=== PATIENT | female | born 1955 | race Caucasian/White ===

== ENCOUNTER 2020-04-25 12:49 | Emergency (ER) | payer MEDICARE, MEDICAID ==
[~2020-04-25] VITALS: Ht 160 cm; Wt 68.0 kg
[~2020-04-25 12:49] MED LIST: PRED5DRO OP; TRAV2.5D OP; TRU10; [UNRECOGNIZED DRUG - CODE] OP
[2020-04-25 13:10] VITALS: BP 144/98
[2020-04-25] MEDS ORDERED: ACETAMINOPHEN 325MG TABLET PO ONE (14:30)
== END 2020-04-25 15:39 | disposition home or self-care (01) ==
LOC: ER 12:49
DX: M26.602 Left temporomandibular joint disorder, unspecified (principal); E11.9 Type 2 diabetes mellitus without complications; I10 Essential (primary) hypertension; H40.9 Unspecified glaucoma; Z98.890 Other specified postprocedural states
CPT/HCPCS: 99283

== ENCOUNTER 2023-07-09 19:17 | Emergency (ER) | payer MEDICARE, MEDICAID ==
[~2023-07-09] VITALS: Ht 157.5 cm; Wt 59.0 kg
[~2023-07-09 19:17] MED LIST changes: +HYDR-4001 PO; -TRAV2.5D OP; +TRAV2.5D9 OP
[2023-07-09 19:24] VITALS: O2SAT 98
[2023-07-09] MEDS ORDERED: AMLODIPINE 10MG TABLET PO ONE (20:15)
[2023-07-09] MEDS ORDERED: AMLODIPINE 5MG TABLET PO NR (20:30)
[2023-07-09 21:50] VITALS: BP 145/77; PULSE 96; RESP 16; TEMP 98
== END 2023-07-09 22:04 | disposition home or self-care (01) ==
LOC: ER 19:17
DX: R42 Dizziness and giddiness (principal); I10 Essential (primary) hypertension; E78.00 Pure hypercholesterolemia, unspecified; Z98.890 Other specified postprocedural states
CPT/HCPCS: 99283